=== PATIENT | female | born 1945 | race Caucasian/White ===

== ENCOUNTER 2016-12-24 14:01 | Outpatient (CLI) | payer MEDICARE, MEDICAID ==
[2016-12-24] MEDS ORDERED: Sodium Chloride 0.9% 15 ML NEB ONE (17:17)
--- NOTE | 2016-12-24 20:11 | HP ---
DATE OF SERVICE: 12/24/2016 HISTORY OF PRESENT ILLNESS: Ms. Albina Garcia is a very pleasant 71-year-old accompanied by her gabriella ruano who presents to the Wound Center for evaluation of an ulceration of the left medial lower le g. The patient states that the ulceration of her left medial lower leg developed after she dropped an 8 pound can of Crisco onto her left medial lower leg in 12/2015. The patient states that she dev eloped ecchymosis and hematoma over the left medial lower leg. She states that she underwent debrid ement by Dr. Dillon. She states that at one point bone and tendon were exposed within the wound sharla ns of the left medial lower leg wound. She states that the depth of the wound has decreased signifi cantly; however, she has had pseudomonas cultured from the wound on three occasions. She states she is now taking her second course of p.o. Levaquin. The patient states that for the treatment of th e left medial lower leg ulceration, she has received dressing changes of Bactroban, calcium alginate , and Medihoney at various times. She states that she also has received a trial of Multidex powder. In addition, the patient has received treatment with an Unna boot for the left medial lower leg ul ceration. The patient was referred to the Wound Center by Dr. Daljit Dillon. PAST MEDICAL HISTORY: 1. Acalculous cholecystitis. 2. Hypertension. 3. Osteoarthritis. 4. Iron deficiency anemia. 5. Colon carcinoma. 6. Peripheral neuropathy. 7. Obstructive sleep apnea. 8. Valvular heart disease. PAST SURGICAL HISTORY: 1. Partial hysterectomy. 2. Laparoscopic cholecystectomy. 3. Colon resection. 4. Total shoulder replacement. 5. Aortic valve replacement by Dr. Angel Mosley on 11/17/2016. MEDICATIONS: 1. Levaquin. 2. Coreg. 3. Iron. 4. Tramadol. 5. Allopurinol. 6. Lasix. 7. Meloxicam. 8. Irbesartan. 9. Aspirin. 10. Gabapentin. 11. Pantoprazole. 12. Hydrocodone. 13. Fish oil. 14. Vitamin C. ALLERGIES: VIOXX. SOCIAL HISTORY: Negative for tobacco or ETOH use. FAMILY HISTORY: Negative for diabetes mellitus. PHYSICAL EXAMINATION: VITAL SIGNS: Temperature 97.8, pulse 80, respirations 20, and blood pressure 153/81. GENERAL: A 71-year-old female sitting in examination room in no acute distress. HEENT: Normocephalic and atraumatic. NECK: No nuchal rigidity. CHEST: Clear to auscultation. CARDIAC: Regular rate and rhythm. ABDOMEN: Soft. EXTREMITIES: An ulceration of the left medial lower leg is present which measures approximately 5.7 x 5.0 cm. Granulation tissue is present within the wound margins. Nonviable tissue present within the wound margins was debrided with an excisional full-thickness debridement. No purulent drainage is associated with the wound. No erythema of the skin surrounding the wound is present. No macera tion of the skin of the periwound is noted. A dorsalis pedis pulse is palpable on the left. Mild-t o-moderate edema of the left foot and lower leg is present on exam today. ASSESSMENT AND PLAN: 1. Varicose veins with ulcer and inflammation. Silverlon, Webril, and the 3M Coban two-layer compr ession system will be applied to the ulceration today. Orders will be transmitted to Home Health fo r dressing changes of Silverlon, Webril, and 3M Coban two-layer compression system 2 times per week after cleansing and irrigation with the assistance of Home Health. I will see Ms. Garcia again in 2 weeks. No antibiotics will be prescribed today based upon the appearance of the wound. The juan jose ent has been instructed to continue p.o. Levaquin as previously prescribed. I have explained to the patient and her daughter that should the ulceration fail to heal over a 4-week period of time, cons ideration will need to be given to treatment with a bioengineered skin substitute, specifically Apli kali. I have explained to the patient and her daughter that Ms. Nunes is a suitable candidate fo r treatment with a bioengineered skin substitute because of the presence of a palpable dorsalis pedi s pulse on the left. The patient and her daughter understand and are in agreement with the precedin g treatment plan. 2. Acalculous cholecystitis, status post cholecystectomy. 3. Hypertension. 4. Osteoarthritis. 5. Iron-deficiency anemia. 6. History of colon carcinoma. 7. Peripheral neuropathy. 8. Obstructive sleep apnea. 9. Valvular heart disease.
== END 2016-12-24 14:02 | disposition home or self-care (01) ==
LOC: WCC 14:01
PROVIDERS: ATTEND Family Medicine
DX: I83.228 Varicose veins of left lower extremity with both ulcer of other part of lower extremity and inflammation (principal); L97.829 Non-pressure chronic ulcer of other part of left lower leg with unspecified severity; K81.0 Acute cholecystitis; I10 Essential (primary) hypertension; M19.90 Unspecified osteoarthritis, unspecified site; D50.9 Iron deficiency anemia, unspecified; G62.9 Polyneuropathy, unspecified; G47.33 Obstructive sleep apnea (adult) (pediatric); I38 Endocarditis, valve unspecified; Z90.49 Acquired absence of other specified parts of digestive tract; Z85.038 Personal history of other malignant neoplasm of large intestine
CPT/HCPCS: 11042; 11045; 97139; G0463; 99203; A4218

== ENCOUNTER 2017-01-07 09:13 | Outpatient (CLI) | payer MEDICARE, MEDICAID ==
--- NOTE | 2017-01-07 12:10 | PRG ---
DATE OF SERVICE: 01/07/2017 HISTORY: Ms. Albina Nunes is a very pleasant 71-year-old accompanied by her daughter who present s to the Wound Center for evaluation of an ulceration of the left medial lower leg. The patient pre viously stated that the ulceration of her left medial lower leg developed after she dropped an 8 josesito nd can of Crisco onto her left medial lower leg in 12/2015. The patient stated that she developed e cchymosis and hematoma over the left medial lower leg. She stated that she underwent debridement by Dr. Dillon. She stated that at one point bone and tendon were exposed within the wound margins of th e left medial lower leg wound. She stated that the depth of the wound has decreased significantly; however, she has had pseudomonas culture from the wound on three occasions. At the time of the juan jose ent's initial presentation to the Wound Center, she stated that she was taking her second course of p.o. Levaquin. The patient stated that for the treatment of the left medial lower leg ulceration, s he has received dressing changes of Bactroban, calcium alginate and Medihoney at various times. The patient stated that for the treatment of the left medial lower leg ulceration, she has received pablo ssing changes of Bactroban, calcium alginate and Medihoney at various times. She stated that she toro d also received a trial of Multidex powder. In addition, the patient has received treatment with an Unna boot for the left medial lower leg ulceration. The patient was referred to the Wound Center b y Dr. Miguel Dillon. After being seen in the Wound Center, Silverlon, Webril, and 3M Coban 2 layer compression system were applied to the ulceration. Orders were also transmitted to Home Health for dressing changes of Silverlon, Webril, and 3M Coban 2 layer compression system two times per week a fter cleansing and irrigation. PHYSICAL EXAMINATION: VITAL SIGNS: Temperature 97.6, pulse 65, respirations 18, blood pressure 131/60. EXTREMITIES: An ulceration of the left medial lower leg is present which measures approximately 4.0 x 4.8 cm. The dimensions of the wound at the time of the patient's last visit were approximately 5 .7 x 5.0 cm. Granulation tissue is present within the wound margins. Necrotic and nonviable tissue present within the wound margins was debrided with an excisional full-thickness debridement with th e use of scissors and a curet. No purulent drainage is associated with the wound. No erythema of t he skin surrounding the wound is present. No maceration of the skin of the periwound is noted. A d orsalis pedis pulse is palpable on the left. No significant edema of the left foot or lower leg is present on exam today. ASSESSMENT AND PLAN: 1. Varicose veins with ulcer and inflammation. Silverlon, Webril, and the 3M Coban two-layer compr ession system will be applied to the ulceration today. Orders will again be transmitted to Home [facility] for dressing changes of Silverlon, Webril, and 3M Coban 2 layer compression system two times per week after cleansing and irrigation. I will see Ms. Nunes again in two weeks. I have reiterate d to the patient and her daughter that should the ulceration fail to heal over a 4-week period of ti me, consideration will need to be given to treatment with a bioengineered skin substitute, specifica lly Apligraf. I have explained again to the patient and her daughter that Ms. Nunes is a suita e candidate for treatment with a bioengineered skin substitute because of the presence of a palpable dorsalis pedis pulse on the left. The patient agrees to return to clinic in 2 weeks. 2. Acalculous cholecystitis, status post cholecystectomy. 3. Hypertension. 4. Osteoarthritis. 5. Iron deficiency anemia. 6. History of colon carcinoma. 7. Peripheral neuropathy. 8. Obstructive sleep apnea. 9. Valvular heart disease.
[2017-01-07] MEDS ORDERED: Sodium Chloride 0.9% 15 ML NEB ONE (17:02)
== END 2017-01-07 09:14 | disposition home or self-care (01) ==
LOC: WCC 09:13
PROVIDERS: ATTEND Family Medicine
DX: I83.228 Varicose veins of left lower extremity with both ulcer of other part of lower extremity and inflammation (principal); I10 Essential (primary) hypertension; M19.90 Unspecified osteoarthritis, unspecified site; D50.9 Iron deficiency anemia, unspecified; G62.9 Polyneuropathy, unspecified; G47.33 Obstructive sleep apnea (adult) (pediatric); I51.89 Other ill-defined heart diseases; K81.9 Cholecystitis, unspecified; Z90.49 Acquired absence of other specified parts of digestive tract
CPT/HCPCS: 11042; A4218

== ENCOUNTER 2017-02-02 08:50 | Outpatient (CLI) | payer MEDICARE, MEDICAID ==
--- NOTE | 2017-02-02 10:20 | PRG ---
DATE OF SERVICE: 02/02/2017 HISTORY: Ms. Albina Nunes is a very pleasant 72-year-old accompanied by her daughter who presents to the Wound Center for evaluation of an ulceration of the left medial lower leg. The patient previ ously stated that the ulceration of her left medial lower leg developed after she dropped an 8 pound can of Crisco on to her left medial lower leg in 12/2015. The patient stated that she developed ecch ymosis and hematoma over the left medial lower leg. She stated that she underwent debridement by Dr. Dillon. She stated that at one point, bone and tendon were exposed within the wound margins of the le ft medial lower leg wound. She stated that the depth of the wound had decreased significantly; howev er, she has had pseudomonas cultured from the wound on three occasions. At the time of the patient's initial presentation to the Wound Center, she stated, she was taking her second course of p.o. Levaq uin. The patient stated that for the treatment of the left medial lower leg ulceration, she had rece ived dressing changes of Bactroban, calcium alginate and Medihoney at various times. She stated that she had also received a trial of Multidex powder. In addition, the patient had received treatment w ith an Unna boot for the left medial lower leg ulceration. The patient was referred to the Wound Phan ter by Dr. Daljit Dillon. After being seen in the Wound Center, Silverlon, Webril, and 3M Coban 2 l janeth compression system were applied to the ulceration. Orders were also transmitted to Home Health for dressing changes of Silverlon, Webril, and 3M Coban 2 layer compression system two times per week after cleansing and irrigation. PHYSICAL EXAMINATION: VITAL SIGNS: Temperature 97.8, pulse 63, respirations 18, blood pressure 129/59. EXTREMITIES: An ulceration of the left medial lower leg is present, which measures approximately 3.5 x 4.4 cm. The dimensions of the wound at the time of the patient's last visit were approximately 4. 0 x 4.8 cm. Granulation tissue is present within the wound margins. Necrotic and nonviable tissue p resent within the wound margins was debrided with an excisional full-thickness debridement with the u se of a curette. No purulent drainage is associated with the wound. No erythema of the skin surroun ding the wound is present. No maceration of the skin of the periwound is noted. A dorsalis pedis pu lse is palpable on the left. A posterior tibial pulse is also palpable on the left. No significant edema of the left foot or lower leg is present on today's exam. ASSESSMENT AND PLAN: 1. Varicose veins with ulcer and inflammation. Silverlon, Webril, and the 3M Coban two-layer compre ssion system will be applied to the ulceration today. Orders will again be transmitted to [facility] for dressing changes of Silverlon, Webril, and 3M Coban 2 layer compression system two times per we ek after cleansing and irrigation. I will see Ms. Nunes again in two weeks. At this time, consid eration will be given to treatment with a bioengineered skin substitute, specifically Apligraf. The patient is a suitable candidate for treatment with Apligraf, because the ulceration has been present since 12/24/2016 and has failed to heal completely despite treatment with the application of compress ion wraps in a serial manner. Moreover, the patient is a suitable candidate for treatment with Aplig ting, because of the presence of both a palpable dorsalis pedis pulse on the left and a palpable poste rior tibial pulse on the left. The patient and her daughter understand and are in agreement with the preceding treatment plan. 2. Acalculous cholecystitis, status post cholecystectomy. 3. Hypertension. 4. Osteoarthritis. 5. Iron deficiency anemia. 6. History of colon carcinoma. 7. Peripheral neuropathy. 8. Obstructive sleep apnea. 9. Valvular heart disease.
== END 2017-02-02 08:51 | disposition home or self-care (01) ==
LOC: WCC 08:50
PROVIDERS: ATTEND Family Medicine
DX: I83.228 Varicose veins of left lower extremity with both ulcer of other part of lower extremity and inflammation (principal); K81.9 Cholecystitis, unspecified; I10 Essential (primary) hypertension; M19.90 Unspecified osteoarthritis, unspecified site; D50.9 Iron deficiency anemia, unspecified; G62.9 Polyneuropathy, unspecified; G47.33 Obstructive sleep apnea (adult) (pediatric); I38 Endocarditis, valve unspecified; Z90.49 Acquired absence of other specified parts of digestive tract
CPT/HCPCS: 11042

== ENCOUNTER 2017-02-16 09:54 | Outpatient (CLI) | payer MEDICARE, MEDICAID ==
--- NOTE | 2017-02-16 11:16 | PRG ---
DATE OF SERVICE: 02/16/2017 HISTORY: Ms. Albina Nunes is a very pleasant 72-year-old, accompanied by her daughter, who presen ts to the Wound Center for evaluation of an ulceration of the left medial lower leg. The patient has been receiving dressing changes of Silverlon, Webril, and the 3M Coban 2 layer compression system 2 times per week after cleansing and irrigation with the assistance of Home Health. The patient has no complaints today. She denies any fever or chills. PHYSICAL EXAMINATION: VITAL SIGNS: Temperature 97.4, pulse 62, respirations 18, blood pressure 159/67. EXTREMITIES: An ulceration of the left medial lower leg is present, which measures approximately 4.2 x 3.2 cm. The dimensions of the wound at the time of the patient's last visit were approximately 3. 5 x 4.4 cm. Granulation tissue is present within the wound margins. A small island of skin is also present within the wound margins. Necrotic and nonviable tissue present within the wound margins was debrided with an excisional full-thickness debridement with the use of a curette. No purulent drain age is associated with the wound. No cellulitis of the left lower leg is appreciated. Stasis dermat itis of the left medial lower leg is present. No maceration of the skin of the periwound is noted. A dorsalis pedis pulse is palpable on the left. No significant edema of the left foot or lower leg i s present on exam today. Apligraf, Mepitel, a bolster of saline-moistened gauze, dry gauze, ABD, Web ril, and the 3M Coban 2 layer compression system were applied to the left medial lower leg ulceration today. ASSESSMENT AND PLAN: 1. Varicose veins with ulcer and inflammation. Apligraf was applied to the left medial lower leg ul ceration today. Orders will be transmitted to Home Health for the dressings applied in clinic today to be left intact until the patient's visit in 1 week. At this time, consideration will be given to another placement of Apligraf. 2. Acalculous cholecystitis, status post cholecystectomy. 3. Hypertension. 4. Osteoarthritis. 5. Iron deficiency anemia. 6. History of colon carcinoma. 7. Peripheral neuropathy. 8. Obstructive sleep apnea. 9. Valvular heart disease.
[2017-02-16] MEDS ORDERED: Sodium Chloride 0.9% 15 ML NEB ONE (17:04)
[2017-02-16] MEDS ORDERED: Lidocaine 2% Jelly 5 ML TUBE ONE (17:04)
== END 2017-02-16 09:55 | disposition home or self-care (01) ==
LOC: WCC 09:54
PROVIDERS: ATTEND Family Medicine
DX: I83.218 Varicose veins of right lower extremity with both ulcer of other part of lower extremity and inflammation (principal); L97.919 Non-pressure chronic ulcer of unspecified part of right lower leg with unspecified severity; K81.9 Cholecystitis, unspecified; Z90.49 Acquired absence of other specified parts of digestive tract; I10 Essential (primary) hypertension; M19.90 Unspecified osteoarthritis, unspecified site; D50.9 Iron deficiency anemia, unspecified; Z85.038 Personal history of other malignant neoplasm of large intestine; G62.9 Polyneuropathy, unspecified; G47.33 Obstructive sleep apnea (adult) (pediatric); I38 Endocarditis, valve unspecified
CPT/HCPCS: A4218; Q4101-KX-JC

== ENCOUNTER 2017-02-23 09:51 | Outpatient (CLI) | payer MEDICARE, MEDICAID ==
--- NOTE | 2017-02-23 10:53 | PRG ---
DATE OF SERVICE: 02/23/2017 HISTORY: Ms. Albina Nunes is a very pleasant 72-year-old accompanied by her daughter who pres ents to the Wound Center for evaluation of an ulceration of the left medial lower leg. The patient i s presently receiving treatment with Apligraf. Ms. Nunes has no complaints today. She denies any fever or chills. PHYSICAL EXAMINATION: VITAL SIGNS: Temperature 97.8, pulse 63, respirations 20, blood pressure 131/61. EXTREMITIES: An ulceration of the left medial lower leg is present which measures approximately 3.4 x 3.5 cm. The dimensions of the wound at the time of the patient's last visit were approximately 4.2 x 3.2 cm. Granulation tissue is present within the wound margins. No purulent drainage is associat ed with the wound. No cellulitis of the left lower leg is appreciated. No maceration of the skin of the periwound is noted. A dorsalis pedis pulse is easily palpable on the left. No significant cristino a of the left foot or lower leg is present on exam today. Apligraf, Adaptic, a bolster of saline-micky stened gauze, dry gauze, ABDs, Webril, and 3M Coban 2 layer compression system were applied to the le ft medial lower leg ulceration. ASSESSMENT AND PLAN: 1. Varicose veins with ulcer and inflammation. Apligraf was applied to the left medial lower leg ul ceration today. Orders will be transmitted to Home Health for dressing changes of Adaptic, ABDs, Web ril, and the 3M Coban 2 layer compression system on a weekly basis until the patient's visit in 3 wee ks. At the time of the patient's visit to the Wound Center in 3 weeks, consideration will be given t o another placement of Apligraf. 2. Acalculous cholecystitis, status post cholecystectomy. 3. Hypertension. 4. Osteoarthritis. 5. Iron deficiency anemia. 6. History of colon carcinoma. 7. Peripheral neuropathy. 8. Obstructive sleep apnea. 9. Valvular heart disease.
[2017-02-23] MEDS ORDERED: Sodium Chloride 0.9% 15 ML NEB ONE (17:05)
== END 2017-02-23 09:52 | disposition home or self-care (01) ==
LOC: WCC 09:51
PROVIDERS: ATTEND Family Medicine
DX: I83.228 Varicose veins of left lower extremity with both ulcer of other part of lower extremity and inflammation (principal); K81.9 Cholecystitis, unspecified; I10 Essential (primary) hypertension; M19.90 Unspecified osteoarthritis, unspecified site; D50.9 Iron deficiency anemia, unspecified; G62.9 Polyneuropathy, unspecified; G47.33 Obstructive sleep apnea (adult) (pediatric); I38 Endocarditis, valve unspecified
CPT/HCPCS: 15271; A4218; Q4101-KX-JC

== ENCOUNTER 2017-03-16 09:42 | Outpatient (CLI) | payer MEDICARE, MEDICAID ==
[2017-03-16] MEDS ORDERED: Sodium Chloride 0.9% 15 ML NEB ONE (10:00)
--- NOTE | 2017-03-16 11:17 | PRG ---
DATE OF SERVICE: 03/16/2017 SUBJECTIVE: Ms. Albina Nunes is a very pleasant 72-year-old accompanied by her daughter who pr esents to the Wound Center for evaluation of an ulceration of the left medial lower leg. The patient is currently receiving treatment with Apligraf. The patient has no complaints today. She denies an y fever or chills. OBJECTIVE: VITAL SIGNS: Temperature 97.6, pulse 64, respirations 17 and blood pressure 137/65. EXTREMITIES: An ulceration of the left medial lower leg is present, which measures approximately 2.9 x 3.4 cm. The dimensions of the wound at the time of the patient's visit on 02/23/2017 were approxi mately 3.4 x 3.5 cm. Granulation tissue was present within the wound margins. No purulent drainage is associated with the wound. No cellulitis of the left lower leg is appreciated. No maceration of the skin of the periwound is noted. A dorsalis pedis pulse is easily palpable on the left. No signi ficant edema of the left foot or lower leg is present on exam today. Apligraf Adaptic touch, a bolst er of saline-moistened gauze, dry gauze, ABDs, Webril, and the 3M Coban 2-Layer Compression System we re applied to the left medial lower leg ulceration. ASSESSMENT AND PLAN: 1. Varicose veins with ulcer and inflammation. Apligraf was applied to the left medial lower leg ul ceration today. I will see Ms. Nunes again in one week at this time, consideration will be given to another placement of Apligraf. 2. Acalculous cholecystitis, status post cholecystectomy. 3. Hypertension. 4. Osteoarthritis. 5. Iron deficiency anemia. 6. History of colon carcinoma. 7. Peripheral neuropathy. 8. Obstructive sleep apnea. 9. Valvular heart disease.
== END 2017-03-16 09:43 | disposition home or self-care (01) ==
LOC: WCC 09:42
PROVIDERS: ATTEND Family Medicine
DX: I83.228 Varicose veins of left lower extremity with both ulcer of other part of lower extremity and inflammation (principal); K81.9 Cholecystitis, unspecified; I10 Essential (primary) hypertension; D50.9 Iron deficiency anemia, unspecified; G62.9 Polyneuropathy, unspecified; M19.90 Unspecified osteoarthritis, unspecified site; G47.33 Obstructive sleep apnea (adult) (pediatric); I35.9 Nonrheumatic aortic valve disorder, unspecified; Z80.0 Family history of malignant neoplasm of digestive organs
CPT/HCPCS: 15271; 97139; Q4101; A4218

== ENCOUNTER 2017-03-23 09:33 | Outpatient (CLI) | payer MEDICARE, MEDICAID ==
--- NOTE | 2017-03-23 10:56 | PRG ---
DATE OF SERVICE: 03/23/2017 HISTORY: Ms. Albina Nunes is a very pleasant 72-year-old accompanied by her daughter who presents to the Wound Center for evaluation of an ulceration of the left medial lower leg. The patient is presently receiving treatment with Apligraf. The patient has no complaints today. She denies any fever or chills. PHYSICAL EXAMINATION: VITAL SIGNS: Temperature 97.5, pulse 66, respirations 18, and blood pressure 118/73. EXTREMITIES: An ulceration of the left medial lower leg is present, which measures approximately 3.5 x 2.8 cm. The dimensions of the wound at the time of the patient's visit on 03/16/2017 were approximately 2.9 x 3.4 cm. Granulation tissue is present within the wound margins. No purulent drainage is associated with the wound. No cellulitis of the left lower leg is appreciated. No maceration of the skin of the periwound is noted. No significant edema of the left foot or lower leg is present on exam today. Apligraf, Adaptic Touch, a bolster of saline-moistened gauze, dry gauze, ABDs, Webril, and the 3M Coban 2-layer compression system were applied to the left medial lower leg ulceration. ASSESSMENT AND PLAN: 1. Varicose veins with ulcer and inflammation. Apligraf was applied to the left medial lower leg ulceration today. Orders will be transmitted to Home Health for the dressings applied in clinic today to be left intact until the patient's visit 1 week from today. At the time of the patient's clinic visit in 1 week, consideration will be given to another placement of Apligraf. 2. Acalculous cholecystitis, status post cholecystectomy. 3. Hypertension. 4. Osteoarthritis. 5. Iron-deficiency anemia. 6. History of colon carcinoma. 7. Peripheral neuropathy. 8. Obstructive sleep apnea. 9. Valvular heart disease. MTDD
[2017-03-23] MEDS ORDERED: Sodium Chloride 0.9% 15 ML NEB ONE (13:31)
[2017-03-23] MEDS ORDERED: Lidocaine 2% Jelly 5 ML TUBE ONE (13:31)
== END 2017-03-23 09:34 | disposition home or self-care (01) ==
LOC: WCC 09:33
PROVIDERS: ATTEND Family Medicine
DX: I83.228 Varicose veins of left lower extremity with both ulcer of other part of lower extremity and inflammation (principal); K81.9 Cholecystitis, unspecified; I10 Essential (primary) hypertension; M19.90 Unspecified osteoarthritis, unspecified site; D50.9 Iron deficiency anemia, unspecified; G62.9 Polyneuropathy, unspecified; G47.33 Obstructive sleep apnea (adult) (pediatric); I35.9 Nonrheumatic aortic valve disorder, unspecified; Z85.038 Personal history of other malignant neoplasm of large intestine
CPT/HCPCS: 15271; A4218; Q4101-KX-JC

== ENCOUNTER 2017-03-30 09:19 | Outpatient (CLI) | payer MEDICARE, MEDICAID ==
--- NOTE | 2017-03-30 11:35 | PRG ---
DATE OF SERVICE: 03/30/2017 SUBJECTIVE: Ms. Albina Nunes is a very pleasant 72-year-old, accompanied by her daughter, who presents to the Wound Center for evaluation of an ulceration of the left medial lower leg. The patie nt is currently receiving treatment with Apligraf. Ms. Nunes has no complaints today. She denies any fever or chills. OBJECTIVE: VITAL SIGNS: Temperature 97.7, pulse 61, respirations 17, blood pressure 133/62. EXTREMITIES: An ulceration of the left medial lower leg is present which measures approximately 2.7 x 2.8 cm. The dimensions of the wound at the time of the patient's visit on 03/23/2017 were approxim ately 3.5 x 2.8 cm. Granulation tissue is present within the wound margins. No purulent drainage is associated with the wound. No cellulitis of the left lower leg is appreciated. No maceration of th e skin of the periwound is noted. A dorsalis pedis pulse is easily palpable on the left. No signifi cant edema of the left foot or lower leg is present on exam today. Apligraf Adaptic touch, a bolster of saline-moistened gauze, dry gauze, ABDs, Webril, and the 3M Coban 2-layer compression system were applied to the left medial lower leg ulceration. ASSESSMENT AND PLAN: 1. Varicose veins with ulcer and inflammation. Apligraf was applied to the left medial lower leg ul ceration today. Orders will be transmitted to Home Health for the dressings applied in clinic today to be left intact for one week. The patient is then to receive dressing changes of Silverlon, ABDs, Webril, and 3M Coban 2-layer compression system two times per week after cleansing and irrigation. I will see Ms. Nunes again in two weeks. 2. Acalculous cholecystitis, status post cholecystectomy. 3. Hypertension. 4. Osteoarthritis. 5. Iron deficiency anemia. 6. History of colon carcinoma. 7. Peripheral neuropathy. 8. Obstructive sleep apnea. 9. Valvular heart disease.
== END 2017-03-30 09:20 | disposition home or self-care (01) ==
LOC: WCC 09:19
PROVIDERS: ATTEND Family Medicine
DX: I83.228 Varicose veins of left lower extremity with both ulcer of other part of lower extremity and inflammation (principal); L97.929 Non-pressure chronic ulcer of unspecified part of left lower leg with unspecified severity; K80.40 Calculus of bile duct with cholecystitis, unspecified, without obstruction; I38 Endocarditis, valve unspecified; G62.9 Polyneuropathy, unspecified; G47.33 Obstructive sleep apnea (adult) (pediatric); I10 Essential (primary) hypertension; M19.90 Unspecified osteoarthritis, unspecified site; D50.9 Iron deficiency anemia, unspecified
CPT/HCPCS: 15271; 97139; Q4101